=== PATIENT | male | born 1935 | race Caucasian/White ===

== ENCOUNTER 2017-12-13 18:49 | Inpatient (IN) | payer MEDICARE ==
[~2017-12-13] VITALS: Ht 177.8 cm; Wt 93.5 kg
--- NOTE | 2017-12-13 19:01 | PHYS DOC ---
Adult General Chief Complaint Chief Complaint: CHEST PAIN-CARDIAC NATURE HPI HPI Patient is a 82 year old male who presents with chest pain. began to have chest pain at 4:00 this afternoon. He was out eating at a restaurant when the pain started. He lost his appetite and was unable to continue eating. The pain is felt in the upper part of the chest. It is worse when he turns his head to the left and sometimes to the right. It did cause him to feel short of breath. He did not have any diaphoresis. The patient does continue to complain of pain 09/27. He already had ASA prior to arrival in the ER. He does have prior known history of atrial fibrillation. He does have a pacemaker. Review of Systems Review of Systems Constitutional: Denies fever or chills Eyes: Denies change in visual acuity HENT: Denies nasal congestion or sore throat Respiratory: Denies cough or shortness of breath Cardiovascular: No additional information GI: Denies abdominal pain, nausea : Denies dysuria or hematuria Musculoskeletal: Denies back pain Integument: Denies rash or skin lesions Neurologic: Denies headache Endocrine: Denies polyuria All other systems were reviewed and found to be within normal limits, except as documented in this note. Allergies Allergies Allergies Coded Allergies Type Severity Reaction Last Updated Verified No Known Drug Allergies 12/13/17 No Physical Exam Physical Exam Constitutional: Well developed, well nourished, no acute distress, non-toxic appearance HENT: Normocephalic, atraumatic, bilateral external ears normal, oropharynx moist Eyes: PERRLA, EOMI, conjunctiva normal Neck: Normal range of motion Cardiovascular:Heart rate regular rhythm, no murmur Lungs & Thorax: Bilateral breath sounds clear to auscultation Abdomen: Bowel sounds normal, soft Skin: Warm, dry, no erythema Back: No tenderness Extremities: No edema Neurologic: Alert and oriented X 3 Psychologic: Affect normal Current Patient Data Vital Signs Vital Signs Date Time Temp Pulse Resp B/P (MAP) Pulse Ox O2 Delivery O2 Flow Rate FiO2 12/13/17 18:50 98.1 75 20 131/73 (92) 89 Room Air 98.1 Lab Values Laboratory Tests Test 12/13/17 19:00 12/13/17 19:31 White Blood Count 9.2 x10^3/uL (4.0-11.0) Red Blood Count 4.28 x10^6/uL (4.30-5.70) L Hemoglobin 14.1 g/dL (13.0-17.5) Hematocrit 40.7 % (39.0-53.0) Mean Corpuscular Volume 95 fL (79-100) Mean Corpuscular Hemoglobin 33 pg (25-35) Mean Corpuscular Hemoglobin Concent 35 g/dL (31-37) Red Cell Distribution Width 13.9 % (11.5-14.5) Platelet Count 203 x10^3/uL (140-400) Neutrophils (%) (Auto) 79 % (31-73) H Lymphocytes (%) (Auto) 10 % (24-48) L Monocytes (%) (Auto) 9 % (0-9) Eosinophils (%) (Auto) 1 % (0-3) Basophils (%) (Auto) 0 % (0-3) Neutrophils # (Auto) 7.3 x10^3uL (1.8-7.7) Lymphocytes # (Auto) 0.9 x10^3/uL (1.0-4.8) L Monocytes # (Auto) 0.8 x10^3/uL (0.0-1.1) Eosinophils # (Auto) 0.1 x10^3/uL (0.0-0.7) Basophils # (Auto) 0.0 x10^3/uL (0.0-0.2) Prothrombin Time 19.4 SEC (11.7-14.0) H Prothrombin Time INR 1.7 (0.8-1.1) H PTT 51 SEC (24-38) H Sodium Level 135 mmol/L (136-145) L Potassium Level 4.7 mmol/L (3.5-5.1) Chloride Level 102 mmol/L (98-107) Carbon Dioxide Level 26 mmol/L (21-32) Anion Gap 7 (6-14) Blood Urea Nitrogen 19 mg/dL (8-26) Creatinine 0.9 mg/dL (0.7-1.3) Estimated GFR (Cockcroft-Gault) 81.2 Glucose Level 122 mg/dL (70-99) H Calcium Level 9.7 mg/dL (8.5-10.1) Troponin I Quantitative < 0.017 ng/mL (0.000-0.055) SR-Pzc-C-Type Natriuretic Peptide 299 pg/mL (0-449) D-Dimer (Maribell) 0.30 ug/mlFEU (0.00-0.50) Laboratory Tests 12/13/17 19:00 Laboratory Tests 12/13/17 19:00 EKG EKG No STEMI Radiology/Procedures Radiology/Procedures No acute findings. Course & Med Decision Making Course & Med Decision Making Pertinent Labs and Imaging studies reviewed. (See chart for details) Patient was seen and examined in the emergency department for chest pain. His troponin was not elevated. His EKG was nonacute. His chest x-ray did not reveal any acute cause for pain. Given his age and history, the patient will be admitted for observation. Discussed with Dr. Crockett who will primarily admit the patient. Bridge orders placed and cardiology consultation. Prior to admission all results are discussed with the patient and his daughter. All of their questions are answered. Patient is agreeable to the plan of care including admission. Dragon Disclaimer Dragon Disclaimer This electronic medical record was generated, in whole or in part, using a voice recognition dictation system. MARLYN LOGAN DO Dec 13, 2017 19:01
[2017-12-13 19:08] LABS: BASO % 0 % (0-3); EOS # 0.1 x10^3/uL (0.0-0.7); EOS % 1 % (0-3); HEMATOCRIT 40.7 % (39.0-53.0); HEMOGLOBIN 14.1 g/dL (13.0-17.5); LYMPH # 0.9 x10^3/uL (1.0-4.8); LYMPH % 10 % (24-48); MEAN CORPUSCULAR HEMOGLOBIN 33 pg (25-35); MEAN CORPUSCULAR HGB CONC 35 g/dL (31-37); MEAN CORPUSCULAR VOLUME 95 fL (79-100); MONO # 0.8 x10^3/uL (0.0-1.1); MONO % 9 % (0-9); NEUT # 7.3 x10^3uL (1.8-7.7); NEUT % 79 % (31-73); PLATELET COUNT 203 x10^3/uL (140-400); RED BLOOD COUNT 4.28 x10^6/uL (4.30-5.70); RED CELL DISTRIBUTION WIDTH 13.9 % (11.5-14.5); WHITE BLOOD COUNT 9.2 x10^3/uL (4.0-11.0)
[2017-12-13 19:17] LABS: PROTHROMBIN TIME PATIENT 19.4 SEC (11.7-14.0)
[2017-12-13 19:25] LABS: CALCIUM 9.7 mg/dL (8.5-10.1); CREATININE 0.9 mg/dL (0.7-1.3); GFR 81.2; POTASSIUM 4.7 mmol/L (3.5-5.1)
[2017-12-13] MEDS ORDERED: ONDANSETRON PF 4 MG/2 ML VIAL. IV PRN ×2 (20:45)
[2017-12-13] MEDS ORDERED: fentaNYL PF VIAL 100 MCG/2 ML VIAL IV PRN (20:45)
[2017-12-13] MEDS ORDERED: TEMAZEPAM 7.5 MG CAPSULE PO PRN (20:45)
[2017-12-13] MEDS ORDERED: NITROGLYCERIN SUBLINGUAL 0.4 MG BOTTLE OF 25. SL PRN (20:45)
[2017-12-13] MEDS ORDERED: ACETAMINOPHEN 325 MG TABLET. PO PRN (20:45)
[2017-12-13] MEDS ORDERED: BACI1CAP6 PO (22:02)
[2017-12-13] MEDS ORDERED: AMLO10TA2 PO (22:02)
[2017-12-13] MEDS ORDERED: PYRI100T PO (22:02)
[2017-12-13] MEDS ORDERED: MAGN250T2 PO (22:02)
[2017-12-13] MEDS ORDERED: METF500T5 PO (22:02)
[2017-12-13] MEDS ORDERED: RANI150T2 PO (22:02)
[2017-12-13] MEDS ORDERED: IRBE300T3 PO (22:02)
[2017-12-13] MEDS ORDERED: OMEG1CAP28 PO (22:02)
[2017-12-13] MEDS ORDERED: ASPI-612 PO (22:02)
[2017-12-13] MEDS ORDERED: FINA5TAB4 PO (22:02)
[2017-12-13] MEDS ORDERED: DABI150C PO (22:02)
[2017-12-13] MEDS ORDERED: TAMS0.4C2 PO (22:02)
[2017-12-13] MEDS ORDERED: MULT1CAP19 PO (22:02)
[2017-12-13] MEDS ORDERED: ALLO300T PO (22:02)
[2017-12-13] MEDS ORDERED: SOTA160T PO (22:02)
[2017-12-13] MEDS ORDERED: CHOL100013 PO (22:02)
[2017-12-13] MEDS ORDERED: ATOR10TA60 PO (22:02)
--- NOTE | 2017-12-13 22:18 | RAD ---
PORTABLE CHEST 1V Clinical History: chest pain today Technique: AP view of the chest was obtained at 12/13/2017 7:11 PM. Comparison: None. Findings: The heart is borderline enlarged. The pulmonary vasculature is normal. The lungs and pleural margins are clear. There is a left-sided pacemaker. Impression: Borderline cardiomegaly. No evidence of pulmonary edema. Electronically signed by: Marko De Leon III, MD (12/13/2017 10:15 PM) [id number]
[2017-12-13 22:59] VITALS: BP 122/63
[2017-12-14 03:00] VITALS: BP 114/60
[2017-12-14 03:48] LABS: BASO % 0 % (0-3); EOS % 0 % (0-3); HEMATOCRIT 38.2 % (39.0-53.0); HEMOGLOBIN 13.2 g/dL (13.0-17.5); LYMPH # 0.6 x10^3/uL (1.0-4.8); LYMPH % 7 % (24-48); MEAN CORPUSCULAR HEMOGLOBIN 33 pg (25-35); MEAN CORPUSCULAR HGB CONC 34 g/dL (31-37); MEAN CORPUSCULAR VOLUME 95 fL (79-100); MONO # 0.9 x10^3/uL (0.0-1.1); MONO % 10 % (0-9); NEUT # 7.1 x10^3uL (1.8-7.7); NEUT % 83 % (31-73); PLATELET COUNT 170 x10^3/uL (140-400); RED BLOOD COUNT 4.02 x10^6/uL (4.30-5.70); RED CELL DISTRIBUTION WIDTH 13.9 % (11.5-14.5); WHITE BLOOD COUNT 8.6 x10^3/uL (4.0-11.0)
[2017-12-14 04:02] LABS: CALCIUM 9.1 mg/dL (8.5-10.1); CREATININE 0.8 mg/dL (0.7-1.3); POTASSIUM 4.2 mmol/L (3.5-5.1)
--- NOTE | 2017-12-14 06:04 | EKG ---
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
--- NOTE | 2017-12-14 06:13 | EKG ---
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
--- NOTE | 2017-12-14 06:13 | EKG ---
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
[2017-12-14 07:00] VITALS: BP 100/58
[2017-12-14] MEDS: metFORMIN 500 MG TABLET PO SCH ×2 (08:00→12:04)
[2017-12-14] MEDS ORDERED: C.DIFF MED SCREEN BY RX. MC ONE (09:00)
[2017-12-14] MEDS: LOSARTAN POTASSIUM 50 MG TABLET. PO SCH ×2 (09:00→12:05)
[2017-12-14] MEDS: SOTALOL 80 MG TABLET. PO SCH ×3 (09:00→20:59)
[2017-12-14] MEDS: LACTOBACILLUS RHAMNOSUS GG 1 CAPSULE. PO SCH ×2 (09:00→12:05)
[2017-12-14] MEDS: amLODIPine BESYLATE 10 MG TABLET PO SCH ×2 (09:00→12:11)
--- NOTE | 2017-12-14 09:49 | PDOC2 ---
CARDIAC CONSULT DATE OF CONSULT Date of Consult DATE: 12/14/17 TIME: 09:43 REASON FOR CONSULT Reason for Consult: chest pain REFERRING PHYSICIAN Referring Physician: Dani SOURCE Source: Chart review, Patient HISTORY OF PRESENT ILLNESS HISTORY OF PRESENT ILLNESS 82 year old male admitted through the ER with c/o bilateral upper chest pain described as sharp and without associated symptoms occurring yesterday with getting out of a vehicle. ER noted pain was worse with turning head; patient unable to answer this question now. EKG is V-paced with underlying atrial fibrillation. Troponin levels not consistent with AMI. No further chest pain. Normally follows with Dr. Ambika Elena @ [facility]. Reason for Visit: chest pain PAST MEDICAL HISTORY Cardiovascular: AFIB, HTN, Hyperlipidemia, Other (PPM - ? medtronic) Pulmonary: No pertinent hx CENTRAL NERVOUS SYSTEM: Other (none) Hepatobiliary: No pertinent hx Psych: No pertinent hx Musculoskeletal: Osteoarthritis Rheumatologic: Gout Infectious disease: No pertinent hx ENT: No pertinent hx Renal/: Benign prostatic enlarg. Endocrine: Diabetes (type II), Other (Vitamin D deficiency) PAST SURGICAL HISTORY Past Surgical History: Pacemaker, Appendectomy, Other (TURP) FAMILY HISTORY Family History: Heart Disease SOCIAL HISTORY Smoke: Quit (40 years ago) ALCOHOL: rare Drugs: None ALLERGIES ALLERGIES: Coded Allergies: No Known Drug Allergies (Unverified , 12/13/17) ROS General: No: Chills, Night Sweats, Fatigue, Malaise, Appetite, Other PSYCHOLOGICAL ROS: No: Anxiety, Behavioral Disorder, Concentration difficultie , Decreased libido, Depression, Disorientation, Hallucinations, Hostility, Irritablity, Memory difficulties, Mood Swings, Obsessive thoughts, Physical abuse, Sexual abuse, Sleep disturbances, Suicidal ideation, Other Eyes: No Blurry vision, No Decreased vision, No Double vision, No Dry eyes, No Excessive tearing, No Eye Pain, No Itchy Eyes, No Loss of vision, No Photophobia , No Scotomata, No Uses contacts, No Uses glasses, No Other HEENT: No: Heacaches, Visual Changes, Hearing change, Nasal congestion, Nasal discharge, Oral lesions, Sinus pain, Sore Throat, Epistaxis, Sneezing, Snoring, Tinnitus, Vertigo, Vocal changes, Other ALLERGY AND IMMUNOLOGY: No: Hives, Insect Bite Sensitivity, Itchy/Watery Eyes, Nasal Congestion, Post Nasal Drip, Seasonal Allergies, Other Hematological and Lymphatic: No: Bleeding Problems, Blood Clots, Blood Transfusions, Brusing, Night Sweats, Pallor, Swollen Lymph Nodes, Other ENDOCRINE: No: Breast Changes, Galactorrhea, Hair Pattern Changes, Hot Flashes , Malaise/lethargy, Mood Swings, Palpitations, Polydipsia/polyuria, Skin Changes , Temperature Intolerance, Unexpected Weight Changes, Other Respiratory: No: Cough, Hemoptysis, Orthopnea, Pleuritic Pain, Shortness of breath, SOB with excertion, Sputum Changes, Stridor, Tachypnea, Wheezing, Other Cardiovascular: yes Chest Pain; No Palpitations, No Orthopnea, No Paroxysmal Noc. Dyspnea, No Edema, No Lt Headedness, No Other Gastrointestinal: No Nausea, No Vomiting, No Abdominal Pain, No Diarrhea, No Constipation, No Melena, No Hematochezia, No Other Genitourinary: No Dysuria, No Frequency, No Incontinence, No Hematuria, No Retention, No Discharge, No Urgency, No Pain, No Flank Pain, No Other Musculoskeletal: No Gait Disturbance, No Joint Pain, No Joint Stiffness, No Joint Swelling, No Muscle Pain, No Muscular Weakness, No Pain In:, No Swelling In:, No Other Neurological: No Behavorial Changes, No Bowel/Bladder ControlChng, No Confusion , No Dizziness, No Gait Disturbance, No Headaches, No Impaired Coord/balance, No Memory Loss, No Numbness/Tingling, No Seizures, No Speech Problems, No Tremors, No Visual Changes, No Weakness, No Other Skin: No Dry Skin, No Eczema, No Hair Changes, No Lumps, No Mole Changes, No Mottling, No Nail Changes, No Pruritus, No Rash, No Skin Lesion Changes, No Other, No Acne PHYSICAL EXAM General: Alert, Oriented X3, Cooperative HEENT: Atraumatic Lungs: Clear to auscultation Heart: Normal S1, Normal S2, Other (IRRR; left pectoral region PPM pocket - well healed; tele: atrial fib with V pacing) Abdomen: Soft Extremities: Normal pulses Skin: No rashes Neuro: Normal speech Psych/Mental Status: Mental status NL, Mood NL MUSCULOSKELETAL: Osteoarthritic changes both hands VITALS VITALS Vital Signs Date Time Temp Pulse Resp B/P (MAP) Pulse Ox O2 Delivery O2 Flow Rate FiO2 8/27/18 07:00 97.8 70 18 100/58 (72) 94 Room Air 97.8 LABS Lab: Laboratory Tests Test 12/13/17 19:00 12/13/17 19:31 12/13/17 23:20 12/14/17 02:30 White Blood Count 9.2 x10^3/uL (4.0-11.0) 8.6 x10^3/uL (4.0-11.0) Red Blood Count 4.28 x10^6/uL (4.30-5.70) 4.02 x10^6/uL (4.30-5.70) Hemoglobin 14.1 g/dL (13.0-17.5) 13.2 g/dL (13.0-17.5) Hematocrit 40.7 % (39.0-53.0) 38.2 % (39.0-53.0) Mean Corpuscular Volume 95 fL (79-100) 95 fL (79-100) Mean Corpuscular Hemoglobin 33 pg (25-35) 33 pg (25-35) Mean Corpuscular Hemoglobin Concent 35 g/dL (31-37) 34 g/dL (31-37) Red Cell Distribution Width 13.9 % (11.5-14.5) 13.9 % (11.5-14.5) Platelet Count 203 x10^3/uL (140-400) 170 x10^3/uL (140-400) Neutrophils (%) (Auto) 79 % (31-73) 83 % (31-73) Lymphocytes (%) (Auto) 10 % (24-48) 7 % (24-48) Monocytes (%) (Auto) 9 % (0-9) 10 % (0-9) Eosinophils (%) (Auto) 1 % (0-3) 0 % (0-3) Basophils (%) (Auto) 0 % (0-3) 0 % (0-3) Neutrophils # (Auto) 7.3 x10^3uL (1.8-7.7) 7.1 x10^3uL (1.8-7.7) Lymphocytes # (Auto) 0.9 x10^3/uL (1.0-4.8) 0.6 x10^3/uL (1.0-4.8) Monocytes # (Auto) 0.8 x10^3/uL (0.0-1.1) 0.9 x10^3/uL (0.0-1.1) Eosinophils # (Auto) 0.1 x10^3/uL (0.0-0.7) 0.0 x10^3/uL (0.0-0.7) Basophils # (Auto) 0.0 x10^3/uL (0.0-0.2) 0.0 x10^3/uL (0.0-0.2) Prothrombin Time 19.4 SEC (11.7-14.0) Prothromb Time International Ratio 1.7 (0.8-1.1) Activated Partial Thromboplast Time 51 SEC (24-38) Sodium Level 135 mmol/L (136-145) 136 mmol/L (136-145) Potassium Level 4.7 mmol/L (3.5-5.1) 4.2 mmol/L (3.5-5.1) Chloride Level 102 mmol/L (98-107) 103 mmol/L (98-107) Carbon Dioxide Level 26 mmol/L (21-32) 21 mmol/L (21-32) Anion Gap 7 (6-14) 12 (6-14) Blood Urea Nitrogen 19 mg/dL (8-26) 18 mg/dL (8-26) Creatinine 0.9 mg/dL (0.7-1.3) 0.8 mg/dL (0.7-1.3) Estimated GFR (Cockcroft-Gault) 81.2 93.0 Glucose Level 122 mg/dL (70-99) 110 mg/dL (70-99) Calcium Level 9.7 mg/dL (8.5-10.1) 9.1 mg/dL (8.5-10.1) Troponin I Quantitative < 0.017 ng/mL (0.000-0.055) < 0.017 ng/mL (0.000-0.055) < 0.017 ng/mL (0.000-0.055) XU-Lkt-C-Type Natriuretic Peptide 299 pg/mL (0-449) D-Dimer (Maribell) 0.30 ug/mlFEU (0.00-0.50) Test 12/14/17 07:58 Glucose (Fingerstick) 111 mg/dL (70-99) IMAGES IMAGES CXR - no acute changes EKG EKG atrial fib with V pacing; no acute changes ASSESSMENT/PLAN ASSESSMENT/PLAN 1. chest pain, atypical --troponin and EKG not consistent with AMI --pain may be exacerbated by movement --risk factors: age, HTN, HLD, DM, male sex; advised pharm MPI; if non- ischemic, d/c home today --TTE to evaluate LVEF and assess for valvular disease 2. atrial fibrillatiion, presumed chronic --continue anti-arrhythmic and OAC --rate controlled 3. HTN --control with oral meds 4. HLD --check FLP --continue statin therapy 5. DM, II --defer to primary service JEFF LYNCH MULTIM[employer]IA PRODUCTION ASSISTANT Dec 14, 2017 09:49
--- NOTE | 2017-12-14 10:15 | PDOC1 ---
History and Physical Date of Admission Date of Admission DATE: 12/14/17 TIME: 10:11 Identification/Chief Complaint Chief Complaint Left shoulder pain while driving radiated to the chest Source Source: Caregiver, Chart review, Patient History of Present Illness History of Present Illness 82-year-old very pleasant male with good ADLs and IADLs, still actually drives, actually had left shoulder pain while he was driving which radiated to the chest. Denies any diaphoresis, presyncopal symptoms. History of pacemaker by Dr. Elena some 6 years ago, I am unsure if he does have history of CAD with stents. Anyways admitted for cardiology to see. No overnight calls, still having some left shoulder pain if he moves about. Denies any trauma. 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 Nonsmoker nondrinker. Labs and EKG chest x-ray are otherwise reassuring, Admitted oBS Past Medical History Cardiovascular: AFIB, HTN, Hyperlipidemia, Other (PPM - ? [employer]tr[employer]) Pulmonary: No pertinent hx CENTRAL NERVOUS SYSTEM: Other (none) Hepatobiliary: No pertinent hx Psych: No pertinent hx Musculoskeletal: Osteoarthritis Rheumatologic: Gout Infectious disease: No pertinent hx ENT: No pertinent hx Renal/: Benign prostatic enlarg. Endocrine: Diabetes (type II), Other (Vitamin D deficiency) Past Surgical History Past Surgical History: Pacemaker, Appendectomy, Other (TURP) Family History Family History: Heart Disease Social History Smoke: No ALCOHOL: rare Drugs: None Current Problem List Problem List Problems Medical Problems: (1) Other chest pain Status: Acute Current Medications Current Medications Current Medications Ondansetron HCl (Zofran) 4 mg PRN Q8HRS PRN IV NAUSEA/VOMITING; Start 12/13/17 at 20:45; Stop 12/13/17 at 20:45; Status DC Fentanyl Citrate (Fentanyl 2ml Vial) 50 mcg PRN Q2HR PRN IV PAIN; Start at 20:45; Stop 12/14/17 at 20:44 Acetaminophen (Tylenol) 650 mg PRN Q4HRS PRN PO FEVER; Start 12/13/17 at 20:45 ; Stop 12/14/17 at 20:44 Nitroglycerin (Nitrostat) 0.4 mg PRN Q5MIN PRN SL CHEST PAIN; Start 12/13/17 at 20:45; Stop 12/14/17 at 20:44 Ondansetron HCl (Zofran) 4 mg PRN Q6HRS PRN IV NAUSEA/VOMITING; Start 12/13/17 at 20:45 Temazepam (Restoril) 7.5 mg PRN QHS PRN PO INSOMNIA; Start 12/13/17 at 20:45 Pharmacy Consult (C.diff Med Screen By Rx) 1 each 1X ONCE [facility] ; Start 12/14/17 at 09:00; Stop 12/14/17 at 09:01; Status DC Allopurinol (Zyloprim) 300 mg DAILY PO ; Start 12/14/17 at 09:00 Amlodipine Besylate (Norvasc) 10 mg DAILY PO ; Start 12/14/17 at 09:00 Aspirin (Ecotrin) 162 mg DAILY PO ; Start 12/14/17 at 09:00 Atorvastatin Calcium (Lipitor) 10 mg HS PO ; Start 12/14/17 at 21:00 Dabigatran (Pradaxa) 150 mg BID PO ; Start 12/14/17 at 09:00 Finasteride (Proscar) 5 mg HS PO ; Start 12/14/17 at 21:00 Tamsulosin HCl (Flomax) 0.4 mg HS PO ; Start 12/14/17 at 21:00 Lactobacillus Rhamnosus (Culturelle) 1 cap BID PO ; Start 12/14/17 at 09:00 Vitamin D (Vitamin D3) 1,000 unit DAILY PO ; Start 12/14/17 at 09:00 Losartan Potassium (Cozaar) 100 mg DAILY PO ; Start 12/14/17 at 09:00 Magnesium Oxide (Magnesium Oxide) 200 mg DAILY PO ; Start 12/14/17 at 09:00 Metformin HCl (Glucophage) 1,000 mg BIDWMEALS PO ; Start 12/14/17 at 08:00 Multivitamins (Thera M Plus) 1 tab DAILY PO ; Start 12/14/17 at 09:00 Fish Oil (Fish Oil) 1,000 mg HS PO ; Start 12/14/17 at 21:00 Pyridoxine HCl (Vitamin B-6) 100 mg DAILY PO ; Start 12/14/17 at 09:00 Famotidine (Pepcid) 20 mg BID PO ; Start 12/14/17 at 09:00 Sotalol HCl (Betapace) 80 mg BID PO ; Start 12/14/17 at 09:00 Active Scripts Active Reported Probiotic (Bacillus Coagulans) 1 Each Capsule.dr 1 Cap PO BID Pradaxa (Dabigatran Etexilate Mesylate) 150 Mg Capsule 150 Mg PO BID Fish Oil 1,200 Mg Softgel ([place]-3 Fatty Acids/Fish Oil) 1 Each Capsule 1,200 Mg PO HS Aspirin Ec (Aspirin) 81 Mg Tablet.dr 162 Mg PO DAILY Tamsulosin Hcl 0.4 Mg Cap.er.24h 0.4 Mg PO HS Multivitamins With Minerals Hp (Multivitamins,Ther W-Minerals) 1 Each Capsule 1 Tab PO DAILY Vitamin D (Cholecalciferol (Vitamin D3)) 1,000 Unit Capsule 1,000 Unit PO DAILY Vitamin B-6 (Pyridoxine Hcl) 100 Mg Tablet 100 Mg PO DAILY Amlodipine Besylate 10 Mg Tablet 10 Mg PO DAILY Allopurinol 300 Mg Tablet 300 Mg PO DAILY Finasteride 5 Mg Tablet 5 Mg PO HS Irbesartan 300 Mg Tablet 300 Mg PO DAILY Metformin Hcl 500 Mg Tablet 1,000 Mg PO BID Sotalol (Sotalol Hcl) 160 Mg Tablet 80 Mg PO BID Magnesium 250 Mg Tablet 250 Mg PO DAILY Atorvastatin Calcium 10 Mg Tablet 10 Mg PO HS Ranitidine Hcl 150 Mg Tablet 150 Mg PO BID Allergies Allergies: Coded Allergies: No Known Drug Allergies (Unverified , 12/13/17) ROS Review of System As per history of present illness, the rest of ROS 14 point negative Physical Exam General: Alert, Oriented X3, Cooperative, No acute distress HEENT: Atraumatic, PERRLA, EOMI Lungs: Clear to auscultation, Normal air movement Heart: S1S2, RRR, no thrills, no rubs, no gallops, no murmurs Cardiovascular: S1, S2 Abdomen: Normal bowel sounds, Soft, No tenderness, No hepatosplenomegaly, No masses Male Genitals Exam: normal genitalia, normal prostate Extremities: Other (no palpable pain on the left shoulder on palpation, but it does hurt when he moves certain movements like external rotation, good pulses distally) Skin: No rashes, No breakdown, No significant lesion Neuro: Normal gait, Normal speech, Strength at 5/5 X4 ext, Normal tone, Sensation intact, Cranial nerves 3-12 NL, Reflexes 2+ Psych/Mental Status: Mental status NL, Mood NL Vitals Vitals Vital Signs Date Time Temp Pulse Resp B/P (MAP) Pulse Ox O2 Delivery O2 Flow Rate FiO2 12/14/17 07:00 97.8 70 18 100/58 (72) 94 Room Air 97.8 Labs Labs Laboratory Tests Test 12/13/17 19:00 12/13/17 19:31 12/13/17 23:20 12/14/17 02:30 White Blood Count 9.2 x10^3/uL (4.0-11.0) 8.6 x10^3/uL (4.0-11.0) Red Blood Count 4.28 x10^6/uL (4.30-5.70) 4.02 x10^6/uL (4.30-5.70) Hemoglobin 14.1 g/dL (13.0-17.5) 13.2 g/dL (13.0-17.5) Hematocrit 40.7 % (39.0-53.0) 38.2 % (39.0-53.0) Mean Corpuscular Volume 95 fL (79-100) 95 fL (79-100) Mean Corpuscular Hemoglobin 33 pg (25-35) 33 pg (25-35) Mean Corpuscular Hemoglobin Concent 35 g/dL (31-37) 34 g/dL (31-37) Red Cell Distribution Width 13.9 % (11.5-14.5) 13.9 % (11.5-14.5) Platelet Count 203 x10^3/uL (140-400) 170 x10^3/uL (140-400) Neutrophils (%) (Auto) 79 % (31-73) 83 % (31-73) Lymphocytes (%) (Auto) 10 % (24-48) 7 % (24-48) Monocytes (%) (Auto) 9 % (0-9) 10 % (0-9) Eosinophils (%) (Auto) 1 % (0-3) 0 % (0-3) Basophils (%) (Auto) 0 % (0-3) 0 % (0-3) Neutrophils # (Auto) 7.3 x10^3uL (1.8-7.7) 7.1 x10^3uL (1.8-7.7) Lymphocytes # (Auto) 0.9 x10^3/uL (1.0-4.8) 0.6 x10^3/uL (1.0-4.8) Monocytes # (Auto) 0.8 x10^3/uL (0.0-1.1) 0.9 x10^3/uL (0.0-1.1) Eosinophils # (Auto) 0.1 x10^3/uL (0.0-0.7) 0.0 x10^3/uL (0.0-0.7) Basophils # (Auto) 0.0 x10^3/uL (0.0-0.2) 0.0 x10^3/uL (0.0-0.2) Prothrombin Time 19.4 SEC (11.7-14.0) Prothromb Time International Ratio 1.7 (0.8-1.1) Activated Partial Thromboplast Time 51 SEC (24-38) Sodium Level 135 mmol/L (136-145) 136 mmol/L (136-145) Potassium Level 4.7 mmol/L (3.5-5.1) 4.2 mmol/L (3.5-5.1) Chloride Level 102 mmol/L (98-107) 103 mmol/L (98-107) Carbon Dioxide Level 26 mmol/L (21-32) 21 mmol/L (21-32) Anion Gap 7 (6-14) 12 (6-14) Blood Urea Nitrogen 19 mg/dL (8-26) 18 mg/dL (8-26) Creatinine 0.9 mg/dL (0.7-1.3) 0.8 mg/dL (0.7-1.3) Estimated GFR (Cockcroft-Gault) 81.2 93.0 Glucose Level 122 mg/dL (70-99) 110 mg/dL (70-99) Calcium Level 9.7 mg/dL (8.5-10.1) 9.1 mg/dL (8.5-10.1) Troponin I Quantitative < 0.017 ng/mL (0.000-0.055) < 0.017 ng/mL (0.000-0.055) < 0.017 ng/mL (0.000-0.055) HC-Qvg-D-Type Natriuretic Peptide 299 pg/mL (0-449) D-Dimer (Maribell) 0.30 ug/mlFEU (0.00-0.50) Test 12/14/17 07:58 Glucose (Fingerstick) 111 mg/dL (70-99) Laboratory Tests Test 12/13/17 19:00 12/13/17 19:31 12/13/17 23:20 12/14/17 02:30 White Blood Count 9.2 x10^3/uL (4.0-11.0) 8.6 x10^3/uL (4.0-11.0) Red Blood Count 4.28 x10^6/uL (4.30-5.70) 4.02 x10^6/uL (4.30-5.70) Hemoglobin 14.1 g/dL (13.0-17.5) 13.2 g/dL (13.0-17.5) Hematocrit 40.7 % (39.0-53.0) 38.2 % (39.0-53.0) Mean Corpuscular Volume 95 fL (79-100) 95 fL (79-100) Mean Corpuscular Hemoglobin 33 pg (25-35) 33 pg (25-35) Mean Corpuscular Hemoglobin Concent 35 g/dL (31-37) 34 g/dL (31-37) Red Cell Distribution Width 13.9 % (11.5-14.5) 13.9 % (11.5-14.5) Platelet Count 203 x10^3/uL (140-400) 170 x10^3/uL (140-400) Neutrophils (%) (Auto) 79 % (31-73) 83 % (31-73) Lymphocytes (%) (Auto) 10 % (24-48) 7 % (24-48) Monocytes (%) (Auto) 9 % (0-9) 10 % (0-9) Eosinophils (%) (Auto) 1 % (0-3) 0 % (0-3) Basophils (%) (Auto) 0 % (0-3) 0 % (0-3) Neutrophils # (Auto) 7.3 x10^3uL (1.8-7.7) 7.1 x10^3uL (1.8-7.7) Lymphocytes # (Auto) 0.9 x10^3/uL (1.0-4.8) 0.6 x10^3/uL (1.0-4.8) Monocytes # (Auto) 0.8 x10^3/uL (0.0-1.1) 0.9 x10^3/uL (0.0-1.1) Eosinophils # (Auto) 0.1 x10^3/uL (0.0-0.7) 0.0 x10^3/uL (0.0-0.7) Basophils # (Auto) 0.0 x10^3/uL (0.0-0.2) 0.0 x10^3/uL (0.0-0.2) Prothrombin Time 19.4 SEC (11.7-14.0) Prothromb Time International Ratio 1.7 (0.8-1.1) Activated Partial Thromboplast Time 51 SEC (24-38) Sodium Level 135 mmol/L (136-145) 136 mmol/L (136-145) Potassium Level 4.7 mmol/L (3.5-5.1) 4.2 mmol/L (3.5-5.1) Chloride Level 102 mmol/L (98-107) 103 mmol/L (98-107) Carbon Dioxide Level 26 mmol/L (21-32) 21 mmol/L (21-32) Anion Gap 7 (6-14) 12 (6-14) Blood Urea Nitrogen 19 mg/dL (8-26) 18 mg/dL (8-26) Creatinine 0.9 mg/dL (0.7-1.3) 0.8 mg/dL (0.7-1.3) Estimated GFR (Cockcroft-Gault) 81.2 93.0 Glucose Level 122 mg/dL (70-99) 110 mg/dL (70-99) Calcium Level 9.7 mg/dL (8.5-10.1) 9.1 mg/dL (8.5-10.1) Troponin I Quantitative < 0.017 ng/mL (0.000-0.055) < 0.017 ng/mL (0.000-0.055) < 0.017 ng/mL (0.000-0.055) ON-Tuq-C-Type Natriuretic Peptide 299 pg/mL (0-449) D-Dimer (Maribell) 0.30 ug/mlFEU (0.00-0.50) Test 12/14/17 07:58 Glucose (Fingerstick) 111 mg/dL (70-99) VTE Prophylaxis Ordered VTE Prophylaxis Devices: Yes VTE Pharmacological Prophylaxi: Yes Assessment/Plan Assessment/Plan Left shoulder pain, radiated to the chest -MSK likely History A. fib with indwelling pacer Hypertension controlled Diabetes type 2 controlled Dyslipidemia on statin Plan: Cards consulted - so far labs reassuring Check a shoulder x-ray Home meds have been reconciled Observation status VANDANA CULVER MD Dec 14, 2017 10:15
[2017-12-14] MEDS ORDERED: REGADENOSON 0.4 MG/5 ML DISP.SYRIN. IV ONE (10:30)
[2017-12-14 11:00] VITALS: BP 109/56
[2017-12-14] MEDS: ALLOPURINOL 300 MG TABLET. PO SCH (12:04)
[2017-12-14] MEDS: MULTIVITAMIN with MINERAL TABLET. PO SCH (12:04)
[2017-12-14] MEDS: ASPIRIN ENTERIC COATED 81 MG TABLET.DR. PO SCH (12:04)
[2017-12-14] MEDS: CHOLECALCIFEROL (VITAMIN D3) 1,000 UNIT TABLET PO SCH (12:05)
[2017-12-14] MEDS: MAGNESIUM OXIDE 400 MG TABLET PO SCH (12:05)
[2017-12-14] MEDS: FAMOTIDINE 20 MG TABLET. PO SCH ×2 (12:10→20:58)
[2017-12-14] MEDS: PYRIDOXINE 50 MG TABLET. PO SCH (12:12)
[2017-12-14] MEDS: DABIGATRAN ETEXILATE 150 MG CAPSULE. PO SCH ×2 (12:12→20:58)
[2017-12-14] MEDS ORDERED: ANTI-COAG MONITOR BY PHARMACY. MC PRN (13:30)
[2017-12-14 15:00] VITALS: BP 112/56
--- NOTE | 2017-12-14 15:44 | RAD ---
MR#: [id number] Date of Study: 12/14/2017 Ordering Physician: JEFF LYNCH, Referring Physician: WIL SCHILLING Tech: RT Andrez (R) (N) APPROVED REPORT Test Type: Pharmacological Stress Nurse/Tech: Brooke Garner RN Test Indications: Chest Pain Cardiac History: Hypertension,PPM,a-fib,, Diabetes,former smoker Medications: See Electronic Medical Record Medical History: See Electronic Medical Record Resting ECG: A-fib with pacer spikes Resting Heart Rate: 75 bpm Resting Blood Pressure: 120/66mmHg Pretest Chest Pain: No chest pain Nurse/Tech Notes Irregular rate and lungs are diminished in the bases. Consent: The procedure was explained to the patient in lay terms. Informed consent was witnessed. Pierre eout was entered into [facility]. History and Stress Test performed by RT Andrez (Enma) (N) Pharm. Details Pharmacologic stress testing was performed using 0.4mg per 5ml of regadenoson given intravenously ove r 7-10 seconds. Stress Symptoms No chest pain or symptoms. POST EXERCISE Reason for Termination: Infusion complete Target HR: Yes Max HR: 143 bpm Max Blood Pressure: 116/57mmHg Blood Pressure response to exercise: Abnormal blood pressure response during stress. Heart Rate response to exercise: Abnormal Chest Pain: No. Arrhythmia: Yes. PVC INTERPRETATION Stress EKG Conclusion: Baseline EKG showed atrial paced rhythm. No diagnostic evidence of ischemia a t peak stress. No arrthythmias. Imaging Protocol IMAGE PROTOCOL: Rest Tc-99m/stress Tc-99m 1 day Rest: Stress: Viability: Radiopharm.Tc99m UmdnnmskoDo92p Sestamibi Dose10.5mCi 33mCi Duration 13min. 13min. Img Date 12/14/2017 12/14/2017 Inj-Img [id number]. 60min. Rest Admin Site:IV - Right AntecubitalAdministrator:RT Cony MaguireR)(N) Stress Admin Site: IV - Right AntecubitalAdministrator: SAGRARIO Cintron, ARRT (R)(N) STRESS DATA End Diast. Vol.104.0mlLVEDV index BSA49.0ml End Syst. Vol.36.0mlLVESV index BSA17.0ml Myocardial Tchm637.0gEject. Aedktxhu91.0% Stress Scores Regional WT0.00Summed WT5.00 Regional WM0.00Summed WM1.00 Study quality was good. Left Ventricular size was Normal at Rest and Stress. Lung uptake was Normal. Left Ventricular ejection fraction is 65%. The rest and stress images show normal perfusion, normal contraction and thickening. LV Perf. Quant 17 Seg. SSS0.00 17 Seg. SRS0.00 17 Seg. SDS0.00 Stress Defect Extent (% LAD)0.00Rest Defect Extent (% LAD)2.50Rev. Defect Extent (% LAD)0.00 Stress Defect Extent (% LCX) 0.00Rest Defect Extent (% LCX)0.00Rev. Defect Extent (% LCX)0.00 Stress Defect Extent (% RCA)0.00Rest Defect Extent (% RCA)0.00Rev. Defect Extent (% RCA)0.00 Stress Defect Extent (% GRACE)0.00Rest Defect Extent (% GRACE)0.90Rev. Defect Extent (% GRACE)0.00 Conclusion 1. Regadenoson cardioisotope stress test did not show any evidence of ischemia or infarct. 2. Normal left ventricular systolic function with ejection fraction calculated at 65%. 3. Low risk for cardiac events. Signed by : Joey Chen, Electronically Approved : 12/14/2017 15:43:53
--- NOTE | 2017-12-14 15:47 | RAD ---
EXAM: Left shoulder, 3 views. HISTORY: Pain. COMPARISON: None. FINDINGS: 3 views of the left shoulder obtained. There is no fracture, dislocation or subluxation. There is mild acromioclavicular osteoarthritis with small inferiorly directed spurs. There is degenerative subchondral cyst formation involving the glenohumeral joint. There is a cardiac pacemaker partially included on the [id number]. There is facet arthropathy at the visualized lower cervical levels. IMPRESSION: 1. Mild glenohumeral and acromioclavicular osteoarthritis. 2. No acute osseous finding. Electronically signed by: Awilda Braga MD (12/14/2017 3:44 PM) [facility]
--- NOTE | 2017-12-14 16:29 | CARD ---
MR#: [id number] Date of Study: 12/14/2017 Ordering Physician: JEFF LYNCH, Referring Physician: Patricia SCHILLING: ELSIE Che APPROVED REPORT EXAM: Two-dimensional and M-mode echocardiogram with Doppler and color Doppler. Other Information HR: 72bpm INDICATION Dyspnea 2D DIMENSIONS RVDd3.6 (2.9-3.5cm)Left Atrium(2D)3.5 (1.6-4.0cm) IVSd1.2 (0.7-1.1cm)Aortic Root(2D)3.6 (2.0-3.7cm) LVDd5.8 (3.9-5.9cm)LVOT Diameter2.5 (1.8-2.4cm) PWd1.2 (0.7-1.1cm)LVDs3.8 (2.5-4.0cm) FS (%) 34.3 %SV104.9 ml Aortic Valve AoV Peak Joey.170.5cm/sAoV VTI34.3cm AO Peak GR.11.6mmHgLVOT Peak Joey.79.7cm/s LVOT VTI 15.52cmAO Mean GR.7mmHg JERMAINE (VMAX)1.34jx4HBX (VTI)2.24cm2 Mitral Valve MV E Uflqebjv31.7cm/sMV E Peak Gr.86mmHg MV DECEL [id number] A Abbkrbra84.9cm/s MV OHE87odZ/A Ratio0.7 MVA (PHT)4.02cm2 TDI E/Lateral E'9.4E/Medial E'8.8 Pulmonary Valve PV Peak Kkuivfeh89.9cm/sPV Peak Grad.3mmHg Tricuspid Valve TR P. Zetdeita390ut/sTR Peak Gr.22mmHg LEFT VENTRICLE The left ventricle is normal size. There is mild concentric left ventricular hypertrophy. The left ve ntricular systolic function is normal and the ejection fraction is within normal range. Left ventricu lar ejection fraction is 50-55%. There is normal LV segmental wall motion. Transmitral Doppler flow p attern is Grade I-abnormal relaxation pattern. RIGHT VENTRICLE The right ventricle is mildly dilated. The right ventricular systolic function is normal. There is a device lead in the right ventricle. ATRIA The left atrium size is normal. The right atrium size is normal. A device lead is seen in the right a trium consistent with history. The interatrial septum is intact with no evidence for an atrial septal defect or patent foramen ovale as noted on 2-D or Doppler imaging. AORTIC VALVE The aortic valve is mildly to moderately calcified. Doppler and Color Flow revealed mild aortic regur gitation. There is no significant aortic valvular stenosis. There is no aortic valvular vegetation. MITRAL VALVE The mitral valve is thickened but opens well. Mitral annular calcification is mild. A mild mitral duane ve prolapse is present. There is no mitral valve stenosis. Doppler and Color-flow revealed mild ruby l regurgitation. TRICUSPID VALVE The tricuspid valve leaflets are thickened , but open well. Doppler and Color Flow revealed mild to m oderate tricuspid regurgitation. There is no tricuspid valve prolapse or vegetation. There is no tric uspid valve stenosis. PULMONIC VALVE The pulmonic valve is not well visualized. Doppler and Color Flow revealed no pulmonic valvular regur gitation. There is no pulmonic valvular stenosis. GREAT VESSELS The aortic root is normal in size. The IVC is dilated and collapses <50% with inspiration. PERICARDIAL EFFUSION There is no pleural effusion. There is a small circumferential pericardial effusion with no hemodynam ic significance. Critical Notification Critical Value: No <Conclusion> The left ventricle is normal size. The left ventricular systolic function is normal and the ejection fraction is within normal range. Left ventricular ejection fraction is 50-55%. There is mild concentric left ventricular hypertrophy. There is no significant aortic valvular stenosis. Doppler and Color Flow revealed mild aortic regurgitation. Doppler and Color-flow revealed mild mitral regurgitation. Doppler and Color Flow revealed mild to moderate tricuspid regurgitation. There is a small circumferential pericardial effusion with no hemodynamic significance. Signed by : Benton Jacome MD Electronically Approved : 12/14/2017 16:29:01
[2017-12-14 19:00] VITALS: BP 113/65
[2017-12-14] MEDS ORDERED: ATORVASTATIN CALCIUM 10 MG TABLET. PO SCH (21:00)
[2017-12-14] MEDS ORDERED: FINASTERIDE 5 MG TABLET. PO SCH (21:00)
[2017-12-14] MEDS ORDERED: TAMSULOSIN 0.4 MG CAP.ER.24H. PO SCH (21:00)
[2017-12-14] MEDS ORDERED: OMEGA-3 FATTY ACIDS/FISH OIL 1,000 MG CAPSULE. PO SCH (21:00)
[2017-12-14 23:00] VITALS: BP 115/58
[2017-12-15 03:00] VITALS: BP 111/57
[2017-12-15 07:00] VITALS: BP 120/65
[2017-12-15] MEDS: PYRIDOXINE 50 MG TABLET. PO SCH (08:25)
[2017-12-15] MEDS: MULTIVITAMIN with MINERAL TABLET. PO SCH (08:26)
[2017-12-15] MEDS: DABIGATRAN ETEXILATE 150 MG CAPSULE. PO SCH (08:26)
[2017-12-15] MEDS: LOSARTAN POTASSIUM 50 MG TABLET. PO SCH (08:26)
[2017-12-15] MEDS: amLODIPine BESYLATE 10 MG TABLET PO SCH (08:26)
[2017-12-15] MEDS: LACTOBACILLUS RHAMNOSUS GG 1 CAPSULE. PO SCH (08:26)
[2017-12-15 08:27] VITALS: BP 120/65
[2017-12-15] MEDS: FAMOTIDINE 20 MG TABLET. PO SCH (08:27)
[2017-12-15] MEDS: metFORMIN 500 MG TABLET PO SCH (08:27)
[2017-12-15] MEDS: MAGNESIUM OXIDE 400 MG TABLET PO SCH (08:27)
[2017-12-15] MEDS: SOTALOL 80 MG TABLET. PO SCH (08:27)
[2017-12-15] MEDS: ASPIRIN ENTERIC COATED 81 MG TABLET.DR. PO SCH (08:28)
[2017-12-15] MEDS: CHOLECALCIFEROL (VITAMIN D3) 1,000 UNIT TABLET PO SCH (08:31)
[2017-12-15] MEDS: ALLOPURINOL 300 MG TABLET. PO SCH (08:31)
--- NOTE | 2017-12-15 11:17 | PDOC3 ---
Discharge Summary Visit Information Date of Admission: Dec 14, 2017 Date of Discharge: Dec 15, 2017 Admitting Diagnosis Comment: Left shoulder pain, radiated to the chest -MSK likely History A. fib with indwelling pacer Hypertension controlled Diabetes type 2 controlled Dyslipidemia on statin Final Diagnosis Problems Medical Problems: (1) Other chest pain Status: Acute Brief Hospital Course Allergies Allergies Coded Allergies Type Severity Reaction Last Updated Verified No Known Drug Allergies 12/13/17 No Vital Signs Vital Signs Date Time Temp Pulse Resp B/P (MAP) Pulse Ox O2 Delivery O2 Flow Rate FiO2 12/15/17 08:27 82 120/65 12/15/17 08:00 Room Air 12/15/17 07:00 97.7 20 95 97.7 Lab Results Laboratory Tests Test 12/13/17 19:00 12/13/17 19:31 12/13/17 23:20 12/14/17 02:30 White Blood Count 9.2 x10^3/uL (4.0-11.0) 8.6 x10^3/uL (4.0-11.0) Red Blood Count 4.28 x10^6/uL (4.30-5.70) 4.02 x10^6/uL (4.30-5.70) Hemoglobin 14.1 g/dL (13.0-17.5) 13.2 g/dL (13.0-17.5) Hematocrit 40.7 % (39.0-53.0) 38.2 % (39.0-53.0) Mean Corpuscular Volume 95 fL (79-100) 95 fL (79-100) Mean Corpuscular Hemoglobin 33 pg (25-35) 33 pg (25-35) Mean Corpuscular Hemoglobin Concent 35 g/dL (31-37) 34 g/dL (31-37) Red Cell Distribution Width 13.9 % (11.5-14.5) 13.9 % (11.5-14.5) Platelet Count 203 x10^3/uL (140-400) 170 x10^3/uL (140-400) Neutrophils (%) (Auto) 79 % (31-73) 83 % (31-73) Lymphocytes (%) (Auto) 10 % (24-48) 7 % (24-48) Monocytes (%) (Auto) 9 % (0-9) 10 % (0-9) Eosinophils (%) (Auto) 1 % (0-3) 0 % (0-3) Basophils (%) (Auto) 0 % (0-3) 0 % (0-3) Neutrophils # (Auto) 7.3 x10^3uL (1.8-7.7) 7.1 x10^3uL (1.8-7.7) Lymphocytes # (Auto) 0.9 x10^3/uL (1.0-4.8) 0.6 x10^3/uL (1.0-4.8) Monocytes # (Auto) 0.8 x10^3/uL (0.0-1.1) 0.9 x10^3/uL (0.0-1.1) Eosinophils # (Auto) 0.1 x10^3/uL (0.0-0.7) 0.0 x10^3/uL (0.0-0.7) Basophils # (Auto) 0.0 x10^3/uL (0.0-0.2) 0.0 x10^3/uL (0.0-0.2) Prothrombin Time 19.4 SEC (11.7-14.0) Prothromb Time International Ratio 1.7 (0.8-1.1) Activated Partial Thromboplast Time 51 SEC (24-38) Sodium Level 135 mmol/L (136-145) 136 mmol/L (136-145) Potassium Level 4.7 mmol/L (3.5-5.1) 4.2 mmol/L (3.5-5.1) Chloride Level 102 mmol/L (98-107) 103 mmol/L (98-107) Carbon Dioxide Level 26 mmol/L (21-32) 21 mmol/L (21-32) Anion Gap 7 (6-14) 12 (6-14) Blood Urea Nitrogen 19 mg/dL (8-26) 18 mg/dL (8-26) Creatinine 0.9 mg/dL (0.7-1.3) 0.8 mg/dL (0.7-1.3) Estimated GFR (Cockcroft-Gault) 81.2 93.0 Glucose Level 122 mg/dL (70-99) 110 mg/dL (70-99) Calcium Level 9.7 mg/dL (8.5-10.1) 9.1 mg/dL (8.5-10.1) Troponin I Quantitative < 0.017 ng/mL (0.000-0.055) < 0.017 ng/mL (0.000-0.055) < 0.017 ng/mL (0.000-0.055) MS-Zdu-O-Type Natriuretic Peptide 299 pg/mL (0-449) D-Dimer (Maribell) 0.30 ug/mlFEU (0.00-0.50) Test 12/14/17 07:58 12/14/17 11:58 12/14/17 17:13 12/14/17 20:08 Glucose (Fingerstick) 111 mg/dL (70-99) 118 mg/dL (70-99) 124 mg/dL (70-99) 113 mg/dL (70-99) Test 12/15/17 07:45 Glucose (Fingerstick) 134 mg/dL (70-99) Laboratory Tests Test 12/14/17 11:58 12/14/17 17:13 12/14/17 20:08 12/15/17 07:45 Glucose (Fingerstick) 118 mg/dL (70-99) 124 mg/dL (70-99) 113 mg/dL (70-99) 134 mg/dL (70-99) Brief Hospital Course Mr. 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 Denies any diaphoresis, presyncopal symptoms. History of pacemaker by Dr. Elena some 6 years ago, I am unsure if he does have history of CAD with stents. Anyways admitted for cardiology to see. No overnight calls, still having some left shoulder pain if he moves about. Denies any trauma. 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 Nonsmoker nondrinker. Labs and EKG chest x-ray are otherwise reassuring, Admitted oBS COURSE: cardiac work up neg, HOME today Discharge Information Condition at Discharge: Improved, Stable Disposition/Orders: D/C to Home Scheduled Allopurinol (Allopurinol) 300 Mg Tablet, 300 MG PO DAILY, (Reported) Entered as Reported by: KEN GUTIERREZ on 12/13/172201 Last Action: Continued on 12/13/172251 by KEN GUTIERREZ Amlodipine Besylate (Amlodipine Besylate) 10 Mg Tablet, 10 MG PO DAILY, ( Reported) Entered as Reported by: KEN GUTIERREZ on 12/13/172201 Last Action: Continued on 12/13/172251 by KEN GUTIERREZ Aspirin (Aspirin Ec) 81 Mg Tablet.dr, 162 MG PO DAILY, (Reported) Entered as Reported by: KEN GUTIERREZ on 12/13/172201 Last Action: Continued on 12/13/172251 by KEN GUTIERREZ Atorvastatin Calcium (Atorvastatin Calcium) 10 Mg Tablet, 10 MG PO HS, (Reported ) Entered as Reported by: KEN GUTIERREZ on 12/13/172201 Last Action: Continued on 12/13/172251 by KEN GUTIERREZ Bacillus Coagulans (Probiotic) 1 Each Capsule.dr, 1 CAP PO BID, (Reported) Entered as Reported by: KEN GUTIERREZ on 12/13/172201 Last Action: Converted on 12/13/172251 by KEN GUTIERREZ Cholecalciferol (Vitamin D3) (Vitamin D) 1,000 Unit Capsule, 1,000 UNIT PO DAILY , (Reported) Entered as Reported by: KEN GUTIERREZ on 12/13/172201 Last Action: Converted on 12/13/172251 by KEN GUTIERREZ Dabigatran Etexilate Mesylate (Pradaxa) 150 Mg Capsule, 150 MG PO BID, (Reported ) Entered as Reported by: KEN GUTIERREZ on 12/13/172201 Last Action: Continued on 12/13/172251 by KEN GUTIERREZ Finasteride (Finasteride) 5 Mg Tablet, 5 MG PO HS, (Reported) Entered as Reported by: KEN GUTIERREZ on 12/13/172201 Last Action: Continued on 12/13/172251 by KEN GUTIERREZ Irbesartan (Irbesartan) 300 Mg Tablet, 300 MG PO DAILY, (Reported) Entered as Reported by: KEN GUTIERREZ on 12/13/172201 Last Action: Converted on 12/13/172251 by KEN GUTIERREZ Magnesium (Magnesium) 250 Mg Tablet, 250 MG PO DAILY, (Reported) Entered as Reported by: KEN GUTIERREZ on 12/13/172201 Last Action: Converted on 12/13/172251 by KEN GUTIERREZ Metformin Hcl (Metformin Hcl) 500 Mg Tablet, 1,000 MG PO BID, (Reported) Entered as Reported by: KEN GUTIERREZ on 12/13/172201 Last Action: Edited on 12/13/172349 by KEN GUTIERREZ Multivitamins,Ther W-Minerals (Multivitamins With Minerals Hp) 1 Each Capsule, 1 TAB PO DAILY, (Reported) Entered as Reported by: KEN GUTIERREZ on 12/13/172201 Last Action: Converted on 12/13/172251 by KEN GUTIERREZ [place]-3 Fatty Acids/Fish Oil (Fish Oil 1,200 Mg Softgel) 1 Each Capsule, 1,200 MG PO HS, (Reported) Entered as Reported by: KEN GUTIERREZ on 12/13/172201 Last Action: Converted on 12/13/172251 by KEN GUTIERREZ Pyridoxine Hcl (Vitamin B-6) 100 Mg Tablet, 100 MG PO DAILY, (Reported) Entered as Reported by: KEN GUTIERREZ on 12/13/172201 Last Action: Converted on 12/13/172251 by KEN GUTIERREZ Ranitidine Hcl (Ranitidine Hcl) 150 Mg Tablet, 150 MG PO BID, (Reported) Entered as Reported by: KEN GUTIERREZ on 12/13/172201 Last Action: Converted on 12/13/172251 by KEN GUTIERREZ Sotalol Hcl (Sotalol) 160 Mg Tablet, 80 MG PO BID, (Reported) Entered as Reported by: KEN GUTIERREZ on 12/13/172201 Last Action: Converted on 12/13/172251 by KEN GUTIERREZ Tamsulosin Hcl (Tamsulosin Hcl) 0.4 Mg Cap.er.24h, 0.4 MG PO HS, (Reported) Entered as Reported by: KEN GUTIERREZ on 12/13/172201 Last Action: Continued on 12/13/172251 by VANDANA SANTIZO MD Dec 15, 2017 11:17
== END 2017-12-15 09:00 | disposition home or self-care (01) | DRG 313 ==
LOC: ER 18:49 → 5 SOUTH 20:20 → UNDOADMOB 20:56 → OBSVTOIN 12-14 10:35
PROVIDERS: ADMIT Internal Medicine; ATTEND Internal Medicine
DX: R07.89 Other chest pain (principal); E78.5 Hyperlipidemia, unspecified; E11.9 Type 2 diabetes mellitus without complications; I10 Essential (primary) hypertension; I48.91 Unspecified atrial fibrillation; M10.9 Gout, unspecified; N40.0 Benign prostatic hyperplasia without lower urinary tract symptoms; I25.10 Atherosclerotic heart disease of native coronary artery without angina pectoris; E55.9 Vitamin D deficiency, unspecified; Z90.49 Acquired absence of other specified parts of digestive tract; Z90.79 Acquired absence of other genital organ(s); Z79.84 Long term (current) use of oral hypoglycemic drugs; Z95.0 Presence of cardiac pacemaker; Z87.891 Personal history of nicotine dependence; Z79.82 Long term (current) use of aspirin; Z79.899 Other long term (current) drug therapy; Z95.5 Presence of coronary angioplasty implant and graft
CPT/HCPCS: 36415; 71045; 73030; 78452; 80048; 82962; 83880; 84484; 85025; 85379; 85610; 85730; 93005; 93017; 93306; 96374; 96375; 96376; A9500; G0378; G0379; J2785; 97110; 99285-25

== ENCOUNTER 2017-12-29 11:30 | Emergency (ER) | payer MEDICARE ==
[~2017-12-29] VITALS: Ht 177.8 cm; Wt 90.7 kg
[~2017-12-29 11:30] MED LIST: ALLO300T PO; AMLO10TA6 PO; ASPI-612 PO; ATOR10TA60 PO; BACI1CAP6 PO; CHOL100013 PO; DABI150C PO; FINA5TAB4 PO; IRBE300T3 PO; MAGN250T2 PO; METF500T16 PO; MULT1CAP19 PO; OMEG1CAP28 PO; PYRI100T PO; RANI150T2 PO; SOTA160T PO; TAMS0.4C2 PO
[2017-12-29 11:51] VITALS: BP 129/74
[2017-12-29] MEDS ORDERED: ORPHENADRINE CITRATE 60 MG/2 ML VIAL. IM ONE (12:00)
--- NOTE | 2017-12-29 12:44 | RAD ---
Cervical spine, 5 views, 12/29/2017: HISTORY: Left-sided neck pain There is moderate disc space narrowing at C6-7 with moderate marginal spurring. There is a lesser degree of disc space narrowing and moderate spurring at multiple other levels. There are moderate degenerative changes involving multiple facet joints bilaterally. The combination of findings is causing moderate foraminal stenosis at multiple levels in the mid cervical spine bilaterally. No fracture or dislocation is evident. The prevertebral soft tissues are unremarkable. There is calcific plaquing at both carotid bifurcations. IMPRESSION: 1. Moderate multilevel degenerative change as described above. 2. No acute bony abnormality is detected. Electronically signed by: Hamlet Adam MD (12/29/2017 12:40 PM) [facility]
--- NOTE | 2017-12-29 12:47 | EKG ---
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
[2017-12-29] MEDS ORDERED: ORPH100T PO (13:09)
--- NOTE | 2017-12-29 13:10 | PHYS DOC ---
Past Medical History Past Medical History: A-Fib, Diabetes-Type II, High Cholesterol, Hypertension Additional Past Medical Histor: UMBILICAL HERNIA, C-DIFF Past Surgical History: Appendectomy, Pacemaker, Tonsillectomy, TURP Alcohol Use: Occasionally Drug Use: None Adult General Chief Complaint Chief Complaint: Neck Pain HPI HPI Patient is a 82 year old [f__sex] who presents with [] Review of Systems Review of Systems Constitutional: Denies fever or chills [] Eyes: Denies change in visual acuity, redness, or eye pain [] HENT: Denies nasal congestion or sore throat [] Respiratory: Denies cough or shortness of breath [] Cardiovascular: No additional information not addressed in HPI [] GI: Denies abdominal pain, nausea, vomiting, bloody stools or diarrhea [] : Denies dysuria or hematuria [] Musculoskeletal: Denies back pain or joint pain [] Integument: Denies rash or skin lesions [] Neurologic: Denies headache, focal weakness or sensory changes [] Endocrine: Denies polyuria or polydipsia [] All other systems were reviewed and found to be within normal limits, except as documented in this note. Current Medications Current Medications Current Medications Medications (Trade) Dose Ordered Sig/Tori Start Time Stop Time Status Last Admin Dose Admin Orphenadrine Citrate (Norflex) 60 mg 1X ONCE 12/29/17 12:00 12/29/17 12:01 DC 12/29/17 12:07 60 MG Allergies Allergies Allergies Coded Allergies Type Severity Reaction Last Updated Verified No Known Drug Allergies 12/13/17 No Physical Exam Physical Exam Constitutional: Well developed, well nourished, no acute distress, non-toxic appearance. [] HENT: Normocephalic, atraumatic, bilateral external ears normal, oropharynx moist, no oral exudates, nose normal. [] Eyes: PERRLA, EOMI, conjunctiva normal, no discharge. [] Neck: Normal range of motion, no tenderness, supple, no stridor. [] Cardiovascular:Heart rate regular rhythm, no murmur [] Lungs & Thorax: Bilateral breath sounds clear to auscultation [] Abdomen: Bowel sounds normal, soft, no tenderness, no masses, no pulsatile masses. [] Skin: Warm, dry, no erythema, no rash. [] Back: No tenderness, no CVA tenderness. [] Extremities: No tenderness, no cyanosis, no clubbing, ROM intact, no edema. [] Neurologic: Alert and oriented X 3, normal motor function, normal sensory function, no focal deficits noted. [] Psychologic: Affect normal, judgement normal, mood normal. [] Current Patient Data Vital Signs Vital Signs Date Time Temp Pulse Resp B/P (MAP) Pulse Ox O2 Delivery O2 Flow Rate FiO2 12/29/17 11:51 98.0 78 18 129/74 (92) 97 Room Air 98.0 EKG EKG 1217 EKG SR no STEMI read by Dr. Escobar Radiology/Procedures Radiology/Procedures [] Course & Med Decision Making Course & Med Decision Making Pertinent Labs and Imaging studies reviewed. (See chart for details) [] Dragon Disclaimer Dragon Disclaimer This electronic medical record was generated, in whole or in part, using a voice recognition dictation system. Departure Departure Impression: Primary Impression: Cervical strain, acute Disposition: HOME, SELF-CARE Condition: IMPROVED Referrals: DAMIEN FRAIRE (PCP) Patient Instructions: Cervical Sprain, [id number] Additional Instructions: Fill prescription and use as directed. You may apply ice or heat to the sore area for comfort. Follow up with your doctor in 1-2 days. Return to the ER if your symptoms worsen. Scripts Orphenadrine Citrate (ORPHENADRINE CITRATE) 100 Mg Tablet.er 1 TAB PO BID for 10 Days, #20 TAB 0 Refills Prov: PARRISH KHAN APRN 12/29/17 Problem Qualifiers Primary Impression: Cervical strain, acute Encounter type: initial encounter Qualified Codes: S16.1XXA - Strain of muscle, fascia and tendon at neck level, initial encounter PARRISH KHAN LABOR ARBITRATOR Dec 29, 2017 13:10
== END 2017-12-29 13:31 | disposition home or self-care (01) ==
LOC: ER 11:30
DX: S16.1XXA Strain of muscle, fascia and tendon at neck level, initial encounter (principal); E78.00 Pure hypercholesterolemia, unspecified; E11.9 Type 2 diabetes mellitus without complications; I48.91 Unspecified atrial fibrillation; I10 Essential (primary) hypertension; Z95.0 Presence of cardiac pacemaker; X58.XXXA Exposure to other specified factors, initial encounter; Y93.89 Activity, other specified; Y92.89 Other specified places as the place of occurrence of the external cause; Y99.8 Other external cause status
CPT/HCPCS: 72050; 93005; 96372; 99284; J2360

== ENCOUNTER 2019-05-19 15:35 | Emergency (ER) | payer MEDICARE ==
[~2019-05-19] VITALS: Ht 177.8 cm; Wt 93.1 kg
[~2019-05-19 15:35] MED LIST changes: -AMLO10TA6 PO; +AMLO10TA8 PO; +IRBE300T23 PO; -IRBE300T3 PO; +ORPH100T PO; -PYRI100T PO; +PYRI100T9 PO
--- NOTE | 2019-05-19 16:17 | PHYS DOC ---
Past Medical History Past Medical History: A-Fib, Diabetes-Type II, High Cholesterol, Hypertension Additional Past Medical Histor: UMBILICAL HERNIA, C-DIFF Past Surgical History: Appendectomy, Pacemaker, Tonsillectomy, TURP Alcohol Use: Occasionally Drug Use: None Adult General Chief Complaint Chief Complaint: SKIN PROBLEM [facility] HPI Patient is a 84 year old white male who presents to the emergency department with a bluish colored blister on top of his head. Patient states that he takes Protonix. He denies any bleeding from the area. He states that a couple of weeks ago he bumped his head on a door frame and has had the bluish color not on his head since bumping his head. He denies any loss of consciousness, vision changes, nausea, vomiting, neck pain, or headache. He denies any pain at this time. Patient denies any surrounding erythema, warmth, or drainage from the area. All other ROS is neg unless otherwise noted in HPI. Review of Systems Review of Systems See Above Allergies Allergies Allergies Coded Allergies Type Severity Reaction Last Updated Verified No Known Drug Allergies 12/13/17 No Physical Exam Physical Exam Constitutional: Well developed, well nourished, no acute distress, non-toxic appearance. [] HENT: Normocephalic, atraumatic, bilateral external ears normal, nose normal. [] Eyes: PERRLA, EOMI, conjunctiva normal, no discharge. [] Neck: Normal range of motion, no stridor. [] Cardiovascular:Heart rate regular rhythm Lungs & Thorax: Respirations even and unlabored, no retractions, no respiratory distress Skin: Warm, dry, no erythema, no rash; 0.5 cm diameter raised, fluctuant, dark purple area noted to left upper scalp without surrounding erythema, warmth, or drainage; consistent with blood filled blister. . [] Extremities: No cyanosis, ROM intact Neurologic: Alert and oriented X 3, no focal deficits noted. [] Psychologic: Affect normal, judgement normal, mood normal. [] Current Patient Data Vital Signs Vital Signs Date Time Temp Pulse Resp B/P (MAP) Pulse Ox O2 Delivery O2 Flow Rate FiO2 05/19/19 15:53 97.5 70 20 135/78 (97) 97 Room Air 97.5 EKG EKG [] Radiology/Procedures Radiology/Procedures The affected area was cleansed with alcohol wipes x3, a sterile 20 gauge needle was inserted into the fluctuant area and a small amount of dark red blood followed by bright red blood was evacuated. Minimal blood loss, pt tolerated procedure well. A sterile 4x4 pressure dressing was placed by myself following the procedure. [] Course & Med Decision Making Course & Med Decision Making Pertinent Labs and Imaging studies reviewed. (See chart for details) [] Dragon Disclaimer Dragon Disclaimer This electronic medical record was generated, in whole or in part, using a voice recognition dictation system. Departure Departure Impression: Primary Impression: Blood blister Disposition: 01 HOME, SELF-CARE Condition: STABLE Referrals: DAMIEN FRAIRE (PCP) Patient Instructions: Blisters Additional Instructions: Keep the pressure dressing that was applied on until tomorrow morning. Then apply bandage as needed. Follow up with your primary care doctor to have site rechecked in 1-2 days, return to the ER if symptoms worsen. PARRISH KHAN APRN May 19, 2019 16:17
[2019-05-19 16:28] VITALS: BP 116/66
== END 2019-05-19 16:28 | disposition home or self-care (01) ==
LOC: ER 15:35
DX: S00.02XA Blister (nonthermal) of scalp, initial encounter (principal); I48.20 Chronic atrial fibrillation, unspecified; E11.9 Type 2 diabetes mellitus without complications; E78.00 Pure hypercholesterolemia, unspecified; I10 Essential (primary) hypertension; Z90.89 Acquired absence of other organs; Z95.0 Presence of cardiac pacemaker; Z98.890 Other specified postprocedural states; W22.03XA Walked into furniture, initial encounter; Y93.89 Activity, other specified; Y92.89 Other specified places as the place of occurrence of the external cause; Y99.8 Other external cause status
CPT/HCPCS: 10160; 99281; 99284